=== PATIENT | male | born 1980 | race Caucasian/White ===

== ENCOUNTER 2019-12-13 17:01 | Emergency (ER) | payer OTHER ==
[~2019-12-13] VITALS: Ht 170.2 cm; Wt 63.5 kg
[~2019-12-13 17:01] MED LIST: BENTYL 20 MG TA20 M1 PO; PEPCID20 MG PO
[2019-12-13 18:02] LABS: ABSOLUTE NEUTROPHILS 3.6 thou/uL (1.4-8.2); BASOPHILS 0.6 % (0.0-2.0); EOSINOPHILS 3.1 % (0.0-3.0); HEMOGLOBIN 15.7 gm/dL (14.0-18.0); LYMPHOCYTES 34.1 % (24.0-44.0); MCH 33.2 pg (26.0-34.0); MCHC 34.9 g/dL (28.0-37.0); MONOCYTES 6.5 % (1.0-8.0); PLATELET COUNT 227 thou/uL (150-400); POLYS 55.7 % (36.0-66.0); RBC 4.74 mil/uL (4.50-6.00); RDW 13.4 % (10.5-14.5); WBC 6.4 thou/uL (4.0-11.0)
[2019-12-13 18:12] LABS: CALCIUM 8.2 mg/dL (8.5-10.1); CREATININE 0.6 mg/dL (0.7-1.3); POTASSIUM 3.7 mmol/L (3.5-5.1)
[2019-12-13] MEDS ORDERED: ZPAK PO (19:32)
[2019-12-13 19:53] VITALS: BP 113/74
== END 2019-12-13 19:53 | disposition home or self-care (01) ==
LOC: ER 17:01
PROVIDERS: Nurse Practitioner Family
DX: J18.9 Pneumonia, unspecified organism (principal); G44.209 Tension-type headache, unspecified, not intractable; M79.18 Myalgia, other site; M79.661 Pain in right lower leg; M79.662 Pain in left lower leg; R61 Generalized hyperhidrosis